=== PATIENT | female | born 1965 | race Caucasian/White ===

== ENCOUNTER 2018-09-20 15:33 | Emergency (ER) | payer MEDICAID, OTHER ==
[~2018-09-20] VITALS: Ht 157.5 cm; Wt 85.0 kg
[2018-09-20 15:40] VITALS: BP 175/81; PULSE 84; RESP 20; Ht 157.5 cm; Wt 85.0 kg
[2018-09-20] MEDS ORDERED: PRED20TA PO (15:46)
[2018-09-20] MEDS ORDERED: LACR35O LEFT EYE (15:46)
--- NOTE | 2018-09-20 18:31 | ERD ---
ER Documentation Chief Complaint Chief Complaint left facial droop; difficulty swallowing HPI Patient is a 53-year-old female with no medical problems who presents with a left-sided facial droop. She said that she cannot close her left eye. When she woke up this morning she noticed it because she could not hold water in her mouth while she was brushing her teeth. She denies pain. She has no slurred speech. Upon review of old medical records this is the patient's first visit to the emergency department. ROS All systems reviewed and are negative except as per history of present illness. Medications Home Meds Active Scripts Mineral Oil/Lanolin Oil (Lacri-Lube) 3.5 Gm Oint, 1 APPLIC LEFT EYE NEEDED for DRY EYES, #1 EA Prov:ADINA PANIAGUA MD 09/20/18 Prednisone* (Prednisone*) 20 Mg Tab, 60 MG PO DAILY for 5 Days, TAB Prov:ADINA PANIAGUA MD 09/20/18 PMhx/Soc Medical and Surgical Hx: pt denies Medical Hx Hx Alcohol Use: No Hx Substance Use: No Hx Tobacco Use: No Smoking Status: Never smoker FmHx Family History: diabetes Physical Exam Vitals Vital Signs Date Temp Pulse Resp B/P (MAP) Pulse Ox O2 O2 Flow FiO2 Time Delivery Rate 09/20/18 98.3 84 20 175/81 98 15:40 (112) Physical Exam Const: No acute distress Head: Atraumatic Eyes: Normal Conjunctiva ENT: Normal External Ears, Nose and Mouth. Neck: Full range of motion. No meningismus. Resp: Clear to auscultation bilaterally Cardio: Regular rate and rhythm, no murmurs Abd: Soft, non tender, non distended. 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 I doubt stroke or intracranial mass or hemorrhage. I believe the risk of doing a CT scan of the brain outweigh the benefits. The patient will be given a prescription for prednisone for 5 days and Lacri-Lube. There is no sign of Lyme disease or shingles at this time. The patient will need to follow-up with her primary doctor within the next 1 week and I will give her information for the local clinics that she does not currently of her primary doctor. She can return for any worsening symptoms. Departure Diagnosis: Primary Impression: Velez's palsy Condition: Fair Patient Instructions: Velez's Palsy Referrals: [facility] YOU HAVE RECEIVED A MEDICAL SCREENING EXAM AND THE RESULTS INDICATE THAT YOU DO NOT HAVE A CONDITION THAT REQUIRES URGENT TREATMENT IN THE EMERGENCY DEPARTMENT. FURTHER EVALUATION AND TREATMENT OF YOUR CONDITION CAN WAIT UNTIL YOU ARE SEEN IN YOUR DOCTORS OFFICE WITHIN THE NEXT 1-2 DAYS. IT IS YOUR RESPONSIBILITY TO MAKE AN APPOINTMENT FOR FOLOW-UP CARE. IF YOU HAVE A PRIMARY DOCTOR --you should call your primary doctor and schedule an appointment IF YOU DO NOT HAVE A PRIMARY DOCTOR YOU CAN CALL OUR PHYSICIAN REFERRAL HOTLINE AT IF YOU CAN NOT AFFORD TO SEE A PHYSICIAN YOU CAN CHOSE FROM THE FOLLOWING [facility] [address] [facility] [address] [facility] [facility] [address] [facility] [address] [facility] [address] [facility] [facility]. [address] Additional Instructions: Call your primary care doctor TOMORROW for an appointment during the next 1 WEEK.Tell the secretary of police that you were referred from this facility.See the doctor sooner or return here if your condition worsens before your appointment time. ADINA PANIAGUA MD Sep 20, 2018 18:31
[2018-09-21] MEDS ORDERED: ACYC400T2 PO (15:24)
== END 2018-09-20 17:00 | disposition home or self-care (01) ==
LOC: E/R 15:33
DX: G51.0 Bell's palsy (principal)
CPT/HCPCS: 99283

== ENCOUNTER 2018-09-21 10:36 | Emergency (ER) | payer MEDICAID ==
[~2018-09-21] VITALS: Wt 88.2 kg
[~2018-09-21 10:36] MED LIST: LACR35O LEFT EYE; PRED20TA PO
--- NOTE | 2018-09-21 15:22 | ERD ---
ER Documentation Chief Complaint Chief Complaint FACIAL NUMBESS STARTED YESTERDAY WITH LEFT ARM WEAKNESS HPI This is a 53-year-old female with a recent diagnosis of Velez's palsy who is presenting with concerns of a stroke. The patient noticed a left-sided facial droop, beginning yesterday at around 9 AM. She came to the emergency department yesterday and was diagnosed with a Velez's palsy. She was discharged with a prescription for prednisone. The patient was told to return to the emergency department if she develop any numbness or tingling to the arms or legs. The patient woke up this morning and felt that she had tingling and heaviness into her left arm, and she was concerned about a stroke. The patient does have sen sation to the arm. She has full strength and coordination. She does continue to have the facial droop on the left involving the forehead. The patient does not endorse any other focal deficits. She does not endorse any alleviating or exacerbating factors. The patient denies feeling sick recently. The patient denies fever or chills. The patient has had no headache or vision changes. The patient does not endorse neck or back pain. The patient denies lightheadedness or dizziness. The patient has had no chest pain or trouble breathing. The patient denies nausea or vomiting. The patient denies abdominal pain. The patient denies changes to bowel movements or urination. ROS All systems reviewed and are negative except as per history of present illness. Medications Home Meds Active Scripts Mineral Oil/Lanolin Oil (Lacri-Lube) 3.5 Gm Oint, 1 APPLIC LEFT EYE NEEDED for DRY EYES, #1 EA Prov:ADINA PANIAGUA MD 09/20/18 Prednisone* (Prednisone*) 20 Mg Tab, 60 MG PO DAILY for 5 Days, TAB Prov:ADINA PANIAGUA MD 09/20/18 Allergies Allergies: Coded Allergies: No Known Allergy (Unverified , 09/21/18) PMhx/Soc History of Surgery: No Anesthesia Reaction: No Hx Neurological Disorder: No Hx Respiratory Disorders: No Hx Cardiac Disorders: No Hx Psychiatric Problems: No Hx Miscellaneous Medical Probl: Yes ([place] Palsy) Hx Alcohol Use: No Hx Substance Use: No Hx Tobacco Use: No Smoking Status: Never smoker FmHx Family History: No diabetes Physical Exam Vitals Vital Signs Date Temp Pulse Resp B/P (MAP) Pulse Ox O2 O2 Flow FiO2 Time Delivery Rate 09/21/18 98.5 77 16 151/75 98 Room Air 11:58 (100) 09/21/18 98.4 80 18 174/85 99 10:41 (114) Physical Exam Const: No apparent distress, well-developed, well-nourished Head: Normocephalic, Atraumatic Eyes: Normal Conjunctiva. Extraocular movements intact. Pupils equal, round and reactive to light ENT: Normal External Ears, Nose and Mouth. Neck: Full range of motion. No meningismus. Resp: Clear to auscultation bilaterally, No wheezes, rales or rhonchi Cardio: Regular rate and rhythm. No murmurs, rubs or gallops Abd: Soft, non tender, non distended. Normal bowel sounds Skin: No petechiae or rashes Back: No midline tenderness. No CVA tenderness Ext: No cyanosis, or edema Neur: Awake and alert, oriented 4. Cranial nerves intact. Left-sided facial droop involving the forehead. Normal strength, sensation and coordination. Psych: Anxious Result Diagram: 09/21/18 1052 09/21/18 1054 Results 24 hrs Laboratory Tests Test 09/21/18 10:52 09/21/18 10:54 09/21/18 11:20 White Blood Count 8.5 10^3/ul Red Blood Count 5.16 10^6/ul Hemoglobin 13.6 g/dl Hematocrit 42.7 % Mean Corpuscular Volume 82.8 fl Mean Corpuscular Hemoglobin 26.4 pg Mean Corpuscular 31.9 g/dl Hemoglobin Concent Red Cell Distribution Width 13.2 % Platelet Count 281 10^3/UL Mean Platelet Volume 11.1 fl Immature Granulocytes % 0.400 % Neutrophils % 77.7 % Lymphocytes % 16.7 % Monocytes % 4.7 % Eosinophils % 0.1 % Basophils % 0.4 % Nucleated Red Blood Cells % 0.0 /100WBC Immature Granulocytes # 0.030 10^3/ul Neutrophils # 6.6 10^3/ul Lymphocytes # 1.4 10^3/ul Monocytes # 0.4 10^3/ul Eosinophils # 0.0 10^3/ul Basophils # 0.0 10^3/ul Nucleated Red Blood Cells # 0.0 10^3/ul Prothrombin Time 12.0 Sec Prothrombin Time Ratio 0.9 INR International 0.88 Normalized Ratio Activated Partial Thromboplast 25.4 Sec Time Sodium Level 142 mmol/L Potassium Level 4.1 mmol/L Chloride Level 106 mmol/L Carbon Dioxide Level 26 mmol/L Anion Gap 10 Blood Urea Nitrogen 15 mg/dl Creatinine 0.71 mg/dl Est Glomerular Filtrat > 60 mL/min Rate mL/min Glucose Level 131 mg/dl Hemoglobin A1c 5.9 % Calcium Level 10.0 mg/dl Troponin I < 0.012 ng/ml Triglycerides Level 72 mg/dl Cholesterol Level 229 mg/dl LDL Cholesterol, Calculated 163 mg/dl HDL Cholesterol 52 mg/dl Cholesterol/HDL Ratio 4.4 RATIO Bedside Glucose 127 mg/dL Procedures/MDM MDM The patient's presentation warrants further investigation. Previous medical records, if available, were reviewed. LABS The patient's laboratory testing was obtained and reviewed. No emergent treatment was required unless described below. CBC: No E/o systemic infection or severe anemia or thrombocytopenia Chemistry: No E/o severe acidosis or alkalosis or renal failure or liver disease or diabetic ketoacidosis PT/INR: No E/o significant coagulopathy Troponin: No E/o acute ischemia HbA1c: Normal Lipid panel: Hyperlipidemia evident EKG EKG read by me: Rate/Rhythm: Regular rate and rhythm at a rate of 86 bpm Intervals: Normal [place]: Normal Impression: No evidence of acute ischemia or arrhythmia IMAGING Imaging and Radiology interpretation reviewed. CXR FINDINGS: Medical/support devices: None. Heart/mediastinum: The cardiomediastinal silhouette is normal. Pulmonary vascular markings are normal. Lungs: There is no focal pulmonary parenchymal consolidation or evidence of pleural effusion. Additional: Degenerative changes of the spine are observed. The visualized upper abdomen is unremarkable. IMPRESSION: Unremarkable chest x-ray. Electronically viewed and signed by .Araceli Gilliam MD, on 09/21/2018 11:09 CT brain FINDINGS: There is no intracranial hemorrhage, mass effect, or midline shift. No extra-axial fluid collection is seen. The ventricles and sulci are normal in size and configuration. The density of the brain is normal, and the bowles white matter differentiation appears well-preserved. Mild vascular calcifications are present of the intracranial internal carotid arteries. The visualized scalp and calvarium are normal with exception of mild occipital calvarial thinning of the outer periosteum. The bilateral orbits are normal. The bilateral paranasal sinuses demonstrate mild mucosal thickening in the right greater than left frontal, right ethmoid and sphenoid sinuses. The bilateral mastoid air cells and middle ear cavities are clear. IMPRESSION: 1. No evidence of acute intracranial hemorrhage, infarcts, or acute intracranial pathology. 2. Mild chronic microvascular ischemic disease and diffuse volume loss 3. Thinning of the outer are ostium of the occipital calvarium. This may be further evaluated with contrast brain MRI. Critical finding: A call report was made to Deanna Landry at 09/21/2018 11: 11:58 AM following the completion of the examination by the undersigned. Electronically viewed and signed by .Marta Rubio MD, on 09/21/2018 11:13 MRI Brain FINDINGS: No diffusion weighted abnormalities are seen to suggest the presence of acute ischemia or recent infarct. No hypointense signal abnormalities are seen on the GRE images to suggest the presence of blood degradation products. There is no evidence of intracranial hemorrhage, mass effect, or midline shift. No extra-axial fluid collections are seen. The ventricles and sulci are mildly prominent indicative of volume loss. A few small foci of T2 and FLAIR hyperintensity are seen in the deep and subcortical white matter, which are nonspecific in appearance and may reflect complicated migraines, early microvascular ischemic disease, sequela from prior traumatic or inflammatory insults. There is prominent left paramedian retrocerebellar CSF space measuring up to 1.9 cm in AP diameter which may represent tj cisterna magna versus arachnoid cyst. No abnormal intraparenchymal, meningeal or ependymal enhancement is seen. No abnormal intracranial vascular flow void is noted. The visualized paranasal sinuses demonstrate 2.2 cm probable mucous retention cyst in the right maxillary sinus as well as mild scattered mucosal thickening and debris within the right sphenoid sinus. IMPRESSION: 1. No acute intracranial hemorrhage, infarction or mass. No intracranial enhancing abnormality. 2. A few small foci of white matter signal abnormality, which are nonspecific in appearance and may reflect complicated migraines, early microvascular ischemic disease, sequela from prior traumatic or inflammatory insults. 3. Prominent left paramedian retrocerebellar CSF space which may represent tj cisterna magna versus arachnoid cyst. 4. Mild generalized cerebral volume loss. Electronically viewed and signed by .Nadine Navarro MD, on 09/21/2018 14:19 TREATMENT/DISPOSITION The patient presents again to the emergency department with a persistent left- sided facial droop, now endorsing paresthesias down the left arm. Aside from what appears to be a left facial Velez's palsy, the patient's neurologic exam is very reassuring. The patient has normal strength, sensation and coordination to the left upper extremity. Given that she is endorsing a heaviness and tingling to the left arm which is reportedly new, I did opt to evaluate the patient fully. The patient had a CT and MRI of the head which did not reveal any evidence of cerebral ischemia or intracranial hemorrhage. I spoke with the tele-neurologist who was reassured by the overall history and felt that the patient could likely be safely discharged if the MRI was unremarkable. I have very low suspicion for an acute stroke. The patient's symptoms are consistent with Velez's palsy, and I feel that the patient may continue treatment with that. The patient was previously discharged with prescription for prednisone and Lacri-Lube. I will add a prescription for acyclovir for a possible viral etiology. The patient's symptoms are not consistent with Lyme disease. The patient does appear to have hyperlipidemia. This may be longitudinally managed in an outpatient setting with a primary care physician. DISCHARGE Upon reevaluation of the patient, symptoms have improved. No emergent diagnoses were identified. At this time, I feel that the patient stable for discharge. The patient was instructed to follow-up with a primary care physician in 1-3 days. The patient will be given strict precautions with which to return to the emergency department. Prescriptions: Acyclovir The patient's blood pressure was elevated at greater than 120/80 while in the emergency department. The patient was otherwise stable with no evidence of hypertensive urgency or emergency. The patient does not require admission for blood pressure control. I have discussed with the patient the risks of hypertension. I have instructed the patient to return to the ER for any new or worsening symptoms including chest pain, shortness of breath, headache, blurred vision, confusion, nausea, vomiting or LOC. I have advised the patient to follow up with the primary care physician for outpatient monitoring and treatment for hypertension in 1-3 days. Disclaimer: Inadvertent spelling and grammatical errors are likely due to EHR/dictation software use and do not reflect on the overall quality of patient care. Note that the electronic time recorded on this note does not necessarily reflect the actual time of the patient encounter. Departure Diagnosis: Primary Impression: Velez's palsy Additional Impressions: Arm paresthesia, left Elevated blood pressure reading Hyperlipidemia Hyperlipidemia type: unspecified Qualified Codes: E78.5 - Hyperlipidemia, unspecified Anxiousness Condition: Stable Patient Instructions: Velez's Palsy, Paraesthesias Additional Instructions: Thank you for for coming to [facility] for your care today. Please ask your nurse or provider if you have questions about your care today and do not leave until all your questions have been answered. Please use any medications given as directed and follow-up with your doctor (or the doctor you were referred to) in the next 1-3 days. If you do not have a primary care doctor you may follow up at the [facility] or [facility] (listed below). You may also use motrin and tylenol as needed for fever and/or pain unless instructed otherwise by your provider or nurse. Indications for more urgent follow-up have been discussed, but you may return to the Emergency Department at ANY time for any worrisome or worsening symptoms. If you have abdominal pain, please know that no test or exam you received is perfect and you should follow up within 8 hours for continued pain. If you had any imaging studies today, such as an X-Ray or CT Scan, these studies will be reviewed later by a radiologist. You will be called if there are important findings that were not identified today, so make sure the contact information you provided at registration is correct. If you received any narcotic pain control medicine today, such as Vicodin, Morphine or Dilaudid, your coordination and judgment may be affected for a number of hours. Please do not drive or operate heavy machinery, and you may want someone to assist you at home. If you were given a prescription for n arcotic medication, be aware that it is very addictive- use sparingly and only if necessary. PLEASE SEEK FURTHER EVALUATION AND MANAGEMENT AT YOUR DOCTORS OFFICE WITHIN THE NEXT 1-3 DAYS. IT IS YOUR RESPONSIBILITY TO MAKE AN APPOINTMENT FOR FOLOW-UP CARE. IF YOU HAVE A PRIMARY DOCTOR, PLEASE CALL THEIR OFFICE TO SCHEDULE AN APPOINTMENT FOR FOLLOW UP. IF YOU DO NOT HAVE A PRIMARY DOCTOR YOU CAN CALL OUR PHYSICIAN REFERRAL HOTLINE AT IF YOU CAN NOT AFFORD TO SEE A PHYSICIAN YOU CAN CHOSE FROM THE FOLLOWING PENDING SALE TO [facility]: [facility] [address] [facility]. [address] [facility] [address] [facility] [facility] [address] [facility] [address] [facility] [address] [facility] [facility]. [address] DEANNA ROMERO MD Sep 21, 2018 15:21
[2018-09-21] MEDS ORDERED: ACYC400T2 PO (15:24)
[2018-09-21 16:27] VITALS: BP 120/61; PULSE 61; RESP 14
== END 2018-09-21 16:39 | disposition home or self-care (01) ==
LOC: E/R 10:36
DX: R20.2 Paresthesia of skin (principal); F41.9 Anxiety disorder, unspecified; G51.0 Bell's palsy; R03.0 Elevated blood-pressure reading, without diagnosis of hypertension; E78.5 Hyperlipidemia, unspecified; I63.9 Cerebral infarction, unspecified; R40.2142 Coma scale, eyes open, spontaneous, at arrival to emergency department; R40.2252 Coma scale, best verbal response, oriented, at arrival to emergency department; R40.2362 Coma scale, best motor response, obeys commands, at arrival to emergency department
CPT/HCPCS: 70450; 70553; 71045; 80048; 80061; 82962; 83036; 84484; 85025; 85610; 85730; 93005; Z7502